=== PATIENT | male | born 1965 | race Caucasian/White ===

== ENCOUNTER 2019-12-13 15:32 | Inpatient (IN) | payer MEDICARE ==
[~2019-12-13] VITALS: Ht 170.2 cm; Wt 68.5 kg
--- NOTE | 2019-12-13 15:55 | NUR ---
BIB EMS [facility] HOME ON 5150 HOLD FOR PARANOIA. PATIENT A/OX3, BREATHING EVEN AND UNLABORED, NO SOB NOTED, AMBULATORY WITH STEADY GAIT. SITTER AT BEDSIDE FOR SAFETY.
--- NOTE | 2019-12-13 16:30 | NUR ---
DR. WRIGHT AT BEDSIDE FOR EVAL.
[2019-12-13 18:13] LABS: BASOPHILS # (AUTO) 0.1 /CMM (0.0-0.2); BASOPHILS % (AUTO) 0.5 % (0.0-2.0); EOSINOPHILS % (AUTO) 0.6 % (0.0-6.0); HEMATOCRIT 50 % (39-51); HEMOGLOBIN 16.9 g/dL (13.5-17.5); LYMPHOCYTES # (AUTO) 1.5 /CMM (0.8-4.8); LYMPHOCYTES % (AUTO) 9.8 % (20.0-44.0); MEAN CORPUSCULAR HGB CONC 34 g/dl (31.0-36.0); MEAN CORPUSCULAR VOLUME 92 fL (80-96); MONOCYTES % (AUTO) 6.4 % (2.0-12.0); NEUTROPHILS # (AUTO) 12.4 /CMM (1.8-8.9); NEUTROPHILS % (AUTO) 82.7 % (43.0-81.0); PLATELET COUNT (AUTO) 293 /CMM (150-450); RED BLOOD CELL COUNT(AUTO) 5.43 MIL/uL (4.5-6.0)
--- NOTE | 2019-12-13 18:28 | NUR ---
COVID SWAB SENT.
[2019-12-13 18:36] LABS: BILIRUBIN,URINE NEGATIVE (NEGATIVE); BLOOD, URINE NEGATIVE Ery/uL (NEGATIVE); COLOR,URINE YELLOW (YELLOW); LEUKOCYTE ESTERASE ,URINE NEGATIVE (NEGATIVE); NITRITE, URINE NEGATIVE (NEGATIVE); PH,URINE 5.5 (5.0-8.0); PROTEIN,URINE NEGATIVE (NEGATIVE); UGLUCOSE NEGATIVE (NEGATIVE); UROBILINOGEN,URINE 0.2 EU/dL (0.2)
[2019-12-13 18:43] LABS: CALCIUM, SERUM 10.7 mg/dL (8.5-10.1); CARBON DIOXIDE 26 mmol/L (21-32); CHLORIDE 104 mmol/L (98-107); CREATININE 1.3 mg/dL (0.6-1.3); GLUCOSE 96 mg/dL (74-106); POTASSIUM 3.9 mmol/L (3.5-5.1); SODIUM SERUM 140 mmol/L (136-145); UREA NITROGEN, BLOOD 15 mg/dL (7-18)
[2019-12-13 19:03] LABS: ALANINE AMINOTRANSFERASE 78 U/L (12-78); ALBUMIN 4.8 g/dL (3.4-5.0); ALCOHOL, BLOOD < 3 mg/dL (0-0); ALKALINE PHOSPHATASE 92 U/L (46-116); ASPARTATE AMINOTRANSFERASE 34 U/L (15-37); BILIRUBIN,DIRECT 0.3 mg/dL (0.0-0.2); BILIRUBIN,TOTAL 1.7 mg/dL (0.2-1.0)
--- NOTE | 2019-12-13 19:18 | NUR ---
ENDORSED TO DANIAL FRAZIER FOR DEENA.
--- NOTE | 2019-12-13 19:29 | NUR ---
NURSING SUP GAVE 211-B.
--- NOTE | 2019-12-13 19:51 | NUR ---
REPORT GIVEN TO FREDDIE FREDERICK FOR DEENA
[2019-12-13 20:00] VITALS: BP 132/73
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
[2019-12-13 20:35] VITALS: BP 132/73
[2019-12-13] MEDS ORDERED: LITH150C PO (20:35)
[2019-12-13] MEDS ORDERED: AMIL5TAB9 PO (20:37)
[2019-12-13] MEDS ORDERED: IPRA21SP BNOSTRILS (20:37)
[2019-12-13] MEDS ORDERED: CHOL200010 PO (20:41)
[2019-12-13] MEDS ORDERED: IPRATROPIUM BROMIDE 0.06% 15 ML NASPR NS PRN (21:00)
[2019-12-13] MEDS ORDERED: TEMAZEPAM 7.5 MG CAPSULE PO PRN (21:00)
[2019-12-13] MEDS ORDERED: MAG HYDROX/AL HYDROX/SIMETH 30 ML UDC PO PRN (21:00)
[2019-12-13] MEDS ORDERED: MAGNESIUM HYDROXIDE 30 ML UDC PO PRN (21:00)
[2019-12-13] MEDS ORDERED: LORAZEPAM 0.5 MG TABLET PO PRN (21:00)
[2019-12-13] MEDS ORDERED: ACETAMINOPHEN 325 MG TABLET PO PRN (21:00)
[2019-12-13] MEDS ORDERED: BLOOD SUGAR DIAGNOSTIC 1 EACH STRIP IN ONE (21:30)
[2019-12-13] MEDS: OLANZAPINE 5 MG TABLET PO SCH (21:30)
[2019-12-13] MEDS ORDERED: LITHIUM CARBONATE 150 MG CAPSULE PO SCH (21:30)
--- NOTE | 2019-12-13 21:30 | NUR ---
GPS-RN NOTE: MEDICATION REFUSAL PATIENT REFUSED SCHEDULED ZYPREXA FOR TONIGHT. EDUCATED PATIENT REGARDING THE IMPORTANCE OF MEDICATION COMPLIANCE. PATIENT CONTINUED TO REFUSE X3. WILL CONTINUE TO MONITOR PATIENT'S SAFETY.
[2019-12-13] MEDS: CHOLECALCIFEROL 1,000 UNIT TABLET (VIT D3) PO SCH (23:06)
[2019-12-13] MEDS ORDERED: INFLUENZA VACCINE 2020-21 0.5 ML DISP.SYRIN IM ONE (23:30)
[2019-12-14 08:00] VITALS: BP 124/59
[2019-12-14] MEDS: ENSURE ENLIVE CHOC 237 ML CAN PO SCH ×2 (08:00→17:35)
[2019-12-14] MEDS: LITHIUM CARBONATE 150 MG CAPSULE PO SCH ×2 (09:28→21:08)
[2019-12-14] MEDS: OLANZAPINE 5 MG TABLET PO SCH ×2 (09:29→21:08)
[2019-12-14] MEDS: CHOLECALCIFEROL 1,000 UNIT TABLET (VIT D3) PO SCH (09:29)
[2019-12-14] MEDS: AMILORIDE HCL 5 MG TABLET PO SCH (09:45)
--- NOTE | 2019-12-14 10:52 | NUR ---
ОЛЬГА Initial Discharge Plan: Patient currently resides with his roommate Jesse ([phone]) located [address] [place] [address]; ([phone]). Patient's father Thor [phone]) is also involved in pt's care. Pt would want to return back home upon discharge. This group underwriter contacted pt's roommate Jesse ([phone]) and left a voicemail to confirm pt's discharge plan. This group underwriter also contacted pt's father Thor ([phone]) and left a voicemail to discuss treatment and discharge plan. ОЛЬГА will coordinate with MD and treatment team to help coordinate proper discharge.
--- NOTE | 2019-12-14 10:53 | NUR ---
SW Family Contact: his sba underwriter contacted pt's roommate Jesse ([phone]) and left a voicemail to confirm pt's discharge plan. This sba underwriter also contacted pt's father Thor ([phone]) and left a voicemail to discuss treatment and discharge plan.
--- NOTE | 2019-12-14 10:53 | NUR ---
Psychiatric Hoop Bending Machine Operator: This insurance underwriter sales received a phone call from pt's psychiatric lead case manager Jonna (C: [phone]) (Office: [phone]). Per Jonna, she is able to make pt's apt with psychiatrist upon dc and would like to be informed when pt will be discharged. She does not work on Mondays.
--- NOTE | 2019-12-14 13:08 | NUR ---
SW Family Contact: This scientific technical writer spoke with pt's father Thor ([phone]) and discussed pt's treatment and discharge plan. Per Thor, he stated pt should be able to go back home but should confirm with Jesse, however, Jesse is unavailable at the moment. Thor stated pt has been battling with ADD and has been hyperactive and has difficulties with concentration. Pt's father is involved in his care.
--- NOTE | 2019-12-14 14:27 | NUR ---
ОЛЬГА Individual Intervention: SW met with pt for brief therapy. Pt appeared paranoid. Pt was alert and oriented x3. Pt stated he has ADD. Pt stated he has difficulties concentration and has moments where he forgets. Pt appeared to have difficulty with his concentration but was able to conduct therapy with this policy writer sales. Pt was able to express that he has "many thoughts and it is hard for him to control". This policy writer sales helped pt find alternative intervention such as writing down his feelings/thoughts or being able to express them with someone else. This policy writer sales actively listened and educated pt.
[2019-12-14 16:00] VITALS: BP 100/68
[2019-12-14 19:54] VITALS: BP 116/66
[2019-12-15 07:39] LABS: BASOPHILS # (AUTO) 0.1 /CMM (0.0-0.2); BASOPHILS % (AUTO) 1.4 % (0.0-2.0); EOSINOPHILS % (AUTO) 3.4 % (0.0-6.0); HEMATOCRIT 45 % (39-51); HEMOGLOBIN 14.9 g/dL (13.5-17.5); LYMPHOCYTES # (AUTO) 1.6 /CMM (0.8-4.8); LYMPHOCYTES % (AUTO) 28.4 % (20.0-44.0); MEAN CORPUSCULAR HGB CONC 33 g/dl (31.0-36.0); MEAN CORPUSCULAR VOLUME 93 fL (80-96); MONOCYTES # (AUTO) 0.6 /CMM (0.1-1.30); MONOCYTES % (AUTO) 10.7 % (2.0-12.0); NEUTROPHILS # (AUTO) 3.1 /CMM (1.8-8.9); NEUTROPHILS % (AUTO) 56.1 % (43.0-81.0); PLATELET COUNT (AUTO) 225 /CMM (150-450); RED BLOOD CELL COUNT(AUTO) 4.83 MIL/uL (4.5-6.0); WHITE BLOOD COUNT (AUTO) 5.6 K/uL (4.3-11.0)
[2019-12-15 07:43] LABS: CALCIUM, SERUM 10.4 mg/dL (8.5-10.1); CREATININE 1.2 mg/dL (0.6-1.3)
[2019-12-15] MEDS: CHOLECALCIFEROL 1,000 UNIT TABLET (VIT D3) PO SCH (07:54)
[2019-12-15] MEDS: OLANZAPINE 5 MG TABLET PO SCH ×2 (07:54→20:50)
[2019-12-15] MEDS: AMILORIDE HCL 5 MG TABLET PO SCH (07:55)
[2019-12-15] MEDS: ENSURE ENLIVE CHOC 237 ML CAN PO SCH ×2 (07:55→17:44)
[2019-12-15] MEDS: LITHIUM CARBONATE 150 MG CAPSULE PO SCH ×2 (07:55→20:50)
[2019-12-15 08:00] VITALS: BP 111/69
[2019-12-15 16:00] VITALS: BP 130/85
[2019-12-15 20:11] VITALS: BP 134/78
--- NOTE | 2019-12-16 06:33 | NUR ---
GPS RN CLOSING NOTES: PT LAYING ON BED SLEEPING. SLEPT 8HR THIS SHIFT. NO S/S OF DISTRESS. RESPIRATION EVEN AND UNLABORED WITH EQUAL RISE AND FALL OF THE CHEST ON ROOM AIR. ALL PT CARE NEEDS MET ANTICIPATED. BED IS LOCKED AND IN LOWEST POSITION. WILL CONTINUE TO MONITOR AND ENDORSE TO AM SHIFT
[2019-12-16] MEDS: ENSURE ENLIVE CHOC 237 ML CAN PO SCH ×2 (07:59→19:30)
[2019-12-16 08:00] VITALS: BP 107/68
[2019-12-16] MEDS: LITHIUM CARBONATE 150 MG CAPSULE PO SCH ×2 (08:00→21:17)
[2019-12-16] MEDS: OLANZAPINE 5 MG TABLET PO SCH ×2 (08:01→21:17)
[2019-12-16] MEDS: AMILORIDE HCL 5 MG TABLET PO SCH (08:01)
[2019-12-16] MEDS: CHOLECALCIFEROL 1,000 UNIT TABLET (VIT D3) PO SCH (08:01)
[2019-12-16 16:00] VITALS: BP 113/63
[2019-12-16 19:57] VITALS: BP 110/68
[2019-12-17 08:00] VITALS: BP 137/69
[2019-12-17] MEDS: OLANZAPINE 5 MG TABLET PO SCH ×2 (08:13→21:44)
[2019-12-17] MEDS: ENSURE ENLIVE CHOC 237 ML CAN PO SCH ×2 (08:13→16:00)
[2019-12-17] MEDS: LITHIUM CARBONATE 150 MG CAPSULE PO SCH ×2 (08:13→21:45)
[2019-12-17] MEDS: CHOLECALCIFEROL 1,000 UNIT TABLET (VIT D3) PO SCH (08:13)
[2019-12-17] MEDS: AMILORIDE HCL 5 MG TABLET PO SCH (08:15)
--- NOTE | 2019-12-17 09:00 | NUR ---
RN NOTE- PT ALERT ORIENTED TO PERSON PLACE PURPOSE, CONFUSED, CALM POLITE DIRECTABLE [facility] CONTACT MED COMPLIANT PO INTAKE GOOD ISOLATIVE, GUARDED
[2019-12-17 16:00] VITALS: BP 122/67
--- NOTE | 2019-12-17 16:25 | NUR ---
RN-CO: SAHIL Arthur NP MADE AWARE OF THE SOLITARY KIDNEY THAT THE PATIENT HAS.
[2019-12-17 19:55] VITALS: BP 132/78
[2019-12-18 08:00] VITALS: BP 104/62
[2019-12-18] MEDS: ENSURE ENLIVE CHOC 237 ML CAN PO SCH ×2 (08:15→16:58)
[2019-12-18] MEDS: AMILORIDE HCL 5 MG TABLET PO SCH (09:00)
--- NOTE | 2019-12-18 09:00 | NUR ---
RN NOTE- PT ALERT ORIENTED TO PERSON PLACE TIMER PURPOSE, FOCUS ON MEDS AND LAB VALUES, DR GARCIA SPOKE W PT. STAT LITHIUM LEVEL DRAWN. HOLDING MORNING RX UNTIL LAB RESULTS COME IN. DENIES ALL, PO INTAKE GOOD ISOLATIVE
--- NOTE | 2019-12-18 10:15 | NUR ---
RN NOTE- LITHIUM LEVEL 0.[address] GARCIA
[2019-12-18] MEDS: OLANZAPINE 5 MG TABLET PO SCH ×2 (10:43→21:14)
[2019-12-18] MEDS: CHOLECALCIFEROL 1,000 UNIT TABLET (VIT D3) PO SCH (10:43)
[2019-12-18] MEDS: LITHIUM CARBONATE 150 MG CAPSULE PO SCH ×2 (10:43→21:14)
--- NOTE | 2019-12-18 10:51 | NUR ---
RN NOTE- DR GARCIA CALLED. CONTINUE MEDS ORDERED. 0900 MORNING MEDS GIVEN AT THIS TIME
--- NOTE | 2019-12-18 13:59 | NUR ---
Family Contact: SW called the pt's roommate Jesse ([phone]) and left a voicemail stating that the SW would like to talk to him regarding the pts discharge plan.
--- NOTE | 2019-12-18 14:02 | NUR ---
Family Contact: SW called the pt's father Thor ([phone]) and left a detailed message on the pts current progress and information on average length of stay on his voicemail.
[2019-12-18 16:00] VITALS: BP 122/79
--- NOTE | 2019-12-18 19:30 | NUR ---
GPS RN NOTE: PATIENT RESTING IN BED, NO ACUTE DISTRESS NOTED. BREATHING EVEN AND UNLABORED, NO SOB NOTED. PATIENT CALM AND COOPERATIVE AT THIS TIME. BED LOCKED AND IN LOWEST POSITION, CALL LIGHT IN REACH. WILL CONTINUE TO MONITOR.
[2019-12-18 21:19] VITALS: BP 109/66
[2019-12-19 07:05] LABS: BASOPHILS # (AUTO) 0.1 /CMM (0.0-0.2); BASOPHILS % (AUTO) 1.9 % (0.0-2.0); EOSINOPHILS % (AUTO) 4.5 % (0.0-6.0); HEMATOCRIT 45 % (39-51); HEMOGLOBIN 14.9 g/dL (13.5-17.5); LYMPHOCYTES # (AUTO) 1.5 /CMM (0.8-4.8); LYMPHOCYTES % (AUTO) 23.6 % (20.0-44.0); MEAN CORPUSCULAR HGB CONC 33 g/dl (31.0-36.0); MEAN CORPUSCULAR VOLUME 94 fL (80-96); MONOCYTES # (AUTO) 0.6 /CMM (0.1-1.30); NEUTROPHILS # (AUTO) 3.7 /CMM (1.8-8.9); PLATELET COUNT (AUTO) 230 /CMM (150-450); RED BLOOD CELL COUNT(AUTO) 4.79 MIL/uL (4.5-6.0); WHITE BLOOD COUNT (AUTO) 6.2 K/uL (4.3-11.0)
[2019-12-19 07:32] LABS: CALCIUM, SERUM 9.5 mg/dL (8.5-10.1); CREATININE 1.1 mg/dL (0.6-1.3); MAGNESIUM 2.3 mg/dL (1.8-2.4); PHOSPHORUS 3.1 mg/dL (2.5-4.9)
[2019-12-19 08:00] VITALS: BP 117/83
[2019-12-19] MEDS: ENSURE ENLIVE CHOC 237 ML CAN PO SCH ×2 (08:35→16:26)
[2019-12-19] MEDS: LITHIUM CARBONATE 150 MG CAPSULE PO SCH ×2 (08:35→20:35)
[2019-12-19] MEDS: OLANZAPINE 5 MG TABLET PO SCH ×2 (08:35→20:35)
[2019-12-19] MEDS: CHOLECALCIFEROL 1,000 UNIT TABLET (VIT D3) PO SCH (08:36)
[2019-12-19] MEDS: AMILORIDE HCL 5 MG TABLET PO SCH (08:52)
[2019-12-19 16:00] VITALS: BP 112/75
[2019-12-19 20:26] VITALS: BP 126/74
--- NOTE | 2019-12-19 21:19 | NUR ---
GPS-RN NOTE: INSOMNIA PATIENT C/O INABILITY TO SLEEP. ADMINISTERED RESTORIL 7.5MG PO ORDERED. WILL CONTINUE TO MONITOR PT'S SAFETY.
[2019-12-20 08:00] VITALS: BP 111/71
[2019-12-20] MEDS: AMILORIDE HCL 5 MG TABLET PO SCH (08:28)
[2019-12-20] MEDS: OLANZAPINE 5 MG TABLET PO SCH ×2 (08:28→21:20)
[2019-12-20] MEDS: CHOLECALCIFEROL 1,000 UNIT TABLET (VIT D3) PO SCH (08:29)
[2019-12-20] MEDS: LITHIUM CARBONATE 150 MG CAPSULE PO SCH ×2 (08:29→21:20)
[2019-12-20] MEDS: ENSURE ENLIVE CHOC 237 ML CAN PO SCH ×2 (08:55→17:36)
--- NOTE | 2019-12-20 10:05 | NUR ---
Family Contact: SW called the pt's father Thor ([phone]) and left a voicemail informing him about the pts current updates and then stated that the pt will be discharged soon and that the SW is working with the pt to attempt to contact the pts roommate Jesse.
--- NOTE | 2019-12-20 10:18 | NUR ---
Individual Intervention: SW met with the pt to discuss his needs and the pt stated that he was feeling nervous about his discharge because he does not know where his belongings are. SW explained where they are and then informed him that the SW has been in contact with the pts father but has not been able to contact the pts roommate. Pt states that the SW should attempt to call the roommate later in the day and stated that he has concerns about his medications. SW encouraged the pt to walk around and get exercise as well as speak to the pts nurse regarding medication needs.
[2019-12-20 16:00] VITALS: BP 117/72
[2019-12-20 19:47] VITALS: BP 130/75
[2019-12-21 08:00] VITALS: BP 110/55
[2019-12-21] MEDS: ENSURE ENLIVE CHOC 237 ML CAN PO SCH ×2 (08:08→16:37)
[2019-12-21] MEDS: AMILORIDE HCL 5 MG TABLET PO SCH (08:09)
[2019-12-21] MEDS: CHOLECALCIFEROL 1,000 UNIT TABLET (VIT D3) PO SCH (08:10)
[2019-12-21] MEDS: LITHIUM CARBONATE 150 MG CAPSULE PO SCH ×2 (08:10→20:27)
[2019-12-21] MEDS: OLANZAPINE 5 MG TABLET PO SCH (08:10)
--- NOTE | 2019-12-21 16:06 | NUR ---
Family Contact: SW called the pt's roommate Jesse ([phone]) and left a voicemail stating that the SW would like to talk to him regarding the pts discharge plan.
--- NOTE | 2019-12-21 16:07 | NUR ---
Psychiatric Promotions Officer: ОЛЬГА called pt's psychiatric comp field case manager Jonna (C: [phone]) and informed her that the pt will be discharged on Tuesday and will need appointments.
--- NOTE | 2019-12-21 16:09 | NUR ---
Family Contact: ОЛЬГА called the pt's father Thor ([phone]) and informed him that the pt will be discharged back to his home on Tuesday.
[2019-12-21 20:00] VITALS: BP 124/73
[2019-12-21] MEDS: OLANZAPINE 10 MG TABLET PO SCH (21:14)
--- NOTE | 2019-12-22 06:44 | NUR ---
GPS RN NOTES: PT. RESTING IN HIS ROOM, PT.REMAINED STABLE THROUGHOUT SHIFT, NO S/S OF DISTRESS NOTED , ALL CARE NEEDS MET ANTICIPATED. MED COMPLIANT , NEEDS FREQUENTLY REDIRECTIONS ,WILL CONTINUE TO MONITOR FOR SAFETY BEHAVIOR, AND ENDORSE TO AM SHIFT FOR CONTINUITY OF CARE.
[2019-12-22] MEDS: LITHIUM CARBONATE 150 MG CAPSULE PO SCH ×2 (07:53→20:13)
[2019-12-22] MEDS: CHOLECALCIFEROL 1,000 UNIT TABLET (VIT D3) PO SCH (07:53)
[2019-12-22] MEDS: ENSURE ENLIVE CHOC 237 ML CAN PO SCH ×2 (07:53→16:09)
[2019-12-22] MEDS: AMILORIDE HCL 5 MG TABLET PO SCH (07:54)
[2019-12-22 08:22] VITALS: BP 118/76
[2019-12-22 16:00] VITALS: BP 113/71
[2019-12-22 20:26] VITALS: BP 124/64
[2019-12-22] MEDS: OLANZAPINE 10 MG TABLET PO SCH (21:06)
[2019-12-23 06:37] LABS: BASOPHILS # (AUTO) 0.1 /CMM (0.0-0.2); EOSINOPHILS % (AUTO) 3.7 % (0.0-6.0); HEMATOCRIT 43 % (39-51); HEMOGLOBIN 14.6 g/dL (13.5-17.5); LYMPHOCYTES # (AUTO) 1.7 /CMM (0.8-4.8); LYMPHOCYTES % (AUTO) 25.4 % (20.0-44.0); MEAN CORPUSCULAR HGB CONC 34 g/dl (31.0-36.0); MEAN CORPUSCULAR VOLUME 92 fL (80-96); MONOCYTES # (AUTO) 0.6 /CMM (0.1-1.30); MONOCYTES % (AUTO) 9.1 % (2.0-12.0); NEUTROPHILS % (AUTO) 60.8 % (43.0-81.0); PLATELET COUNT (AUTO) 225 /CMM (150-450); RED BLOOD CELL COUNT(AUTO) 4.65 MIL/uL (4.5-6.0); WHITE BLOOD COUNT (AUTO) 6.6 K/uL (4.3-11.0)
[2019-12-23 07:00] LABS: ALBUMIN 3.4 g/dL (3.4-5.0); CALCIUM, SERUM 9.9 mg/dL (8.5-10.1); CREATININE 1.2 mg/dL (0.6-1.3); POTASSIUM 4.2 mmol/L (3.5-5.1); TOTAL PROTEIN, SERUM 6.3 g/dL (6.4-8.2)
[2019-12-23 08:00] VITALS: BP 107/70
[2019-12-23] MEDS: ENSURE ENLIVE CHOC 237 ML CAN PO SCH ×2 (08:20→17:16)
[2019-12-23] MEDS: AMILORIDE HCL 5 MG TABLET PO SCH (08:21)
[2019-12-23] MEDS: CHOLECALCIFEROL 1,000 UNIT TABLET (VIT D3) PO SCH (08:22)
[2019-12-23] MEDS: LITHIUM CARBONATE 150 MG CAPSULE PO SCH ×2 (08:22→20:17)
[2019-12-23 16:00] VITALS: BP 116/69
[2019-12-23 20:00] VITALS: BP 120/74
[2019-12-23] MEDS: OLANZAPINE 10 MG TABLET PO SCH (22:19)
[2019-12-24 08:00] VITALS: BP 116/73
[2019-12-24] MEDS: ENSURE ENLIVE CHOC 237 ML CAN PO SCH (08:19)
[2019-12-24] MEDS: AMILORIDE HCL 5 MG TABLET PO SCH (08:20)
[2019-12-24] MEDS: CHOLECALCIFEROL 1,000 UNIT TABLET (VIT D3) PO SCH (08:20)
[2019-12-24] MEDS: LITHIUM CARBONATE 150 MG CAPSULE PO SCH (08:20)
--- NOTE | 2019-12-24 09:00 | NUR ---
RN NOTE- PT ANXIOUS REGARDING DC, HYPERVERBAL, WORRIED, DENIES SI HI AH VH MED COMPLIANT PO INTAKE GOOD. REASSURED PT, REDIRECTED, FOCUS PT ON DOING BETTER, BEING AT HOME AND POSITIVE THINGS
--- NOTE | 2019-12-24 11:05 | NUR ---
Discharge Note: Pt was discharged back to his home located at [address] [place] [id number]; ([phone]). SW informed the pts father, Thor ([phone]), about the discharge and he confirmed the pts address and ability to return to the address. Pt was transported via taxi at 12pm. Upon discharge, the pt appeared to be in an anxious mood and presented with an agitated affect. Pt appears to be alert and oriented x4 (time, place, self and situation). Pt appears to be ambulatory with a steady gait. Pt appears to be disheveled and ungroomed. Pt denies suicidal and homicidal ideation and stated that she does not have any auditory or visual hallucinations. Pt will follow up with his psychiatrist, Dr. Kristina Nathan, [place] [address] [place] [address]; ([phone]); (fax of records was sent to: [phone]). Pt has an appointment with psychiatrist on 01/22/20 at 4pm. Pt also has an appointment with the pts correctional counselor/case manager, Jonna ([phone]), on 12/27/19 at 4pm. Pt will follow up with his eye clinic manager, Dr. Tania Leyva, located at [address] [facility] [address], [place] [address]; . Multidisciplinary exit care form was done, printed, signed, and given to the patient.
--- NOTE | 2019-12-24 12:25 | NUR ---
HUMAN RESOURCES CLERK NOTE- PT DC AT THIS TIME TO HIS HOME AT [address] [facility] VIA TAXI. PT VS STABLE, ALERT ORIENTED TO PERSON PLACE TIME PURPOSE. DENIES SI HI AH VH AT PRESENT. VS STABLE, MED COMPLIANT, NO SKIN ISSUES TO TAKE PHOTOS OF. VALUABLES RETURNED AND SIGNED FOR. ID WRISTBAND REMOVED. FLU SHOT GIVEN AT ADMISSION . REFUSED PNA VACCINE. DC PAPERWORK REVIEWED AND VERBALIZED UNDERSTANDING STATED/ ESCORTED OFF UNIT TO TAXI BY STAFF
== END 2019-12-24 12:30 | disposition home or self-care (01) | DRG 885 ==
LOC: ER 15:40 → GPS 19:43
PROVIDERS: ADMIT Psychiatry & Neurology Psychiatry; ATTEND Nurse Practitioner Acute Care
DX: F25.0 Schizoaffective disorder, bipolar type (principal); I10 Essential (primary) hypertension; Z79.51 Long term (current) use of inhaled steroids; F41.9 Anxiety disorder, unspecified; Z79.899 Other long term (current) drug therapy; F29 Unspecified psychosis not due to a substance or known physiological condition; Z73.6 Limitation of activities due to disability; J30.9 Allergic rhinitis, unspecified; Z90.5 Acquired absence of kidney
CPT/HCPCS: 36415; 76700-TC; 80048-TC; 80053-TC; 80061-TC; 80076-TC; 81000-TC; 82962-TC; 83735-TC; 84100-TC; 85025-TC; 87081-TC; C9803; G0480; Q2036